=== PATIENT | female | born 1965 ===

== ENCOUNTER 2021-03-30 13:52 | Emergency (ER) | payer OTHER, MEDICAID, SELFPAY ==
[2021-03-30 14:29] VITALS: BP 186/109; PULSE 102; RESP 18; TEMP 36.8; O2SAT 98; BMI 27.3
--- NOTE | 2021-03-30 16:19 | CM.SWNOTE ---
FITNESS TRAINER Note: Received verbal referral from ED staff to see patient for community resources. FITNESS TRAINER met briefly with patient explained role. Patient is a 55yr old female that recently was at [facility] and now states that she would like second opinion. Patient has prescription for Bactrim which she did not fill. During interview patient randomly talking about her son, daughter, boyfriend, and cat? Patient denies recent drug use but admits to doing small amount of meth? Tox screen ordered and pending. Patient requesting pain medication for her unspecified pain? During short interview it appears that patient may still be high or manic? Patient continues to request to see the provider for second opinion. Patient also requesting that her daughter be called to pick her up? Initially, patient reported that she had no place to go? Patient offered community resources and declined. P: Do not anticipate admit unless work up needed. Spoke briefly with RN and explained the above. At this time no additional FITNESS TRAINER services needed. Patient has Medicaid and they cover prescriptions and possibly transport. [place]
--- NOTE | 2021-03-30 17:00 | PC.NURSE ---
Pt informed of urine order, pt states she already provided urine to [facility] and declines providing sample here.
--- NOTE | 2021-03-30 17:21 | DI.RAD.S_ITS ---
PROCEDURE: XR CHEST 1V INDICATIONS: fatigue TECHNIQUE: One view of the chest was acquired. COMPARISON: None. FINDINGS: Surgical changes and devices: None. Lungs and pleura: Scattered subsegmental scarring and/or atelectasis. No acute consolidation. No pleural effusions or pneumothorax. Mediastinum: Mediastinal contours appear normal. Heart size is normal. Bones and chest wall: No suspicious bony lesions. Overlying soft tissues appear unremarkable. IMPRESSION: No acute disease. Dictated by: Reagan Pickett M.D. on 03/30/2021 at 18:02 Approved by: Reagan Pickett M.D. on 03/30/2021 at 18:03
--- NOTE | 2021-03-30 17:24 | ED.PSYCH ---
HPI - Psych <Ino Mejía, DO - Last Filed: 04/06/21 07:34> General Chief Complaint: Psychiatric Symptoms Stated Complaint: mental health Time Seen by Provider: 03/30/21 17:21 Source: patient Mode of arrival: Ambulatory History of Present Illness HPI Narrative: 55F with history of hypertension and multiple chronic pain diagnoses including migraines presents by EMS for evaluation of which she refers to as a 2nd opinion. Patient is a terrible historian and demonstrates flight of ideas. She denies any established mental health diagnosis or use of street drugs but yet frequently repeats she has been labeled a drug user. She is very nondescript in terms of when she is hoping to get out of this visit but states she wants a 2nd opinion. She states she has been having bilateral knee pain for many years and wants to be sure there is nothing wrong with her knees. Additionally, she has been having back pain for many years. She denies any fever or chills. She has had no chest pain or trouble breathing. Related Data Home Medications Medication Instructions Recorded Confirmed Acetaminophen/Aspirin/Caffei 2 tab PO Q 4H #0 12/30/10 (#EXCEDRIN 250 MG-250 MG-65 MG) TRAMADOL HCL (RYZOLT) 100 mg PO Q6H #0 12/30/10 [SPIRIVA] IH Q DAY #0 12/30/10 amlodipine 10 mg tablet (Norvasc) 10 mg NG Q DAY #0 12/30/10 lisinopril 40 mg tablet 40 mg PO Q DAY #0 12/30/10 metoprolol tartrate 50 mg tablet 25 mg PO BID #0 01/24/11 (Lopressor) tizanidine 4 mg capsule (Zanaflex) 6 mg PO Q6H #0 01/24/11 bupropion HCl 150 mg tablet,12 hr 300 mg PO Q DAY #0 11/28/11 sustained-release (Wellbutrin SR) fluoxetine 20 mg capsule 60 mg PO Q DAY #0 11/28/11 pregabalin 50 mg capsule (Lyrica) 100 mg PO TID #3 11/28/11 Allergies Allergy/AdvReac Type Severity Reaction Status Date / Time From IMITREX NS SPR 20 MG Allergy Intermediate VERY Uncoded 03/30/21 14:25 ANXIOUS CRAZY From INDOCIN PO CAP 25 MG Allergy Intermediate STOMACH Uncoded 03/30/21 14:25 ACHE From TALWIN Allergy Intermediate STOMACH Uncoded 03/30/21 14:25 PAIN Review of Systems <Ino Mejía DO - Last Filed: 04/06/21 07:34> Review of Systems Narrative: GENERAL: Denies chills, fatigue, malaise, fever, sweats. HEENT: Denies sinus pain, ear pain, sore throat, difficulty swallowing, dizziness. RESPIRATORY: Denies dyspnea, cough, wheezing, hemoptysis, sputum. CARDIOVASCULAR: Denies chest pain, palpitations, orthopnea, edema, GASTROINTESTINAL: Denies nausea, vomiting, abdominal pain, diarrhea, constipation, melena. : Denies dysuria, frequency, incontinence, hematuria, urinary retention. MUSCULOSKELETAL: See HPI SKIN: Denies rash, skin lesions, or other NEUROLOGIC: See HPI PSYCHIATRIC: No concerning psychosocial issues. 12 point review of systems is negative except for those stated above Patient History <Ino Mejía DO - Last Filed: 04/06/21 07:34> Social History Smoking Status: Current every day smoker Smoking Status: Current every day smoker alcohol intake frequency: other Exam <Ino Mejía DO - Last Filed: 04/06/21 07:34> Narrative Exam Narrative: GENERAL: [55 year old patient appears older than stated age. Well-developed patient, in mild distress. Anxious. Pressured speech, perseverating, and paranoid HEAD: Atraumatic. Normocephalic. EYES: Pupils equal round and reactive. Extraocular motions intact. No scleral icterus. No injection or drainage. ENT: Nose without bleeding, purulent drainage. Throat without erythema, tonsillar hypertrophy or exudate. Airway patent. NECK: Trachea midline. Non tender CARDIOVASCULAR: Regular rate and rhythm without murmurs, gallops, or rubs. RESPIRATORY: Clear to auscultation. Breath sounds equal bilaterally. No wheezes, rales, or rhonchi. GASTROINTESTINAL: Abdomen soft, non-tender, nondistended. EXTREMITIES: No edema or joint tenderness. BACK: Nontender without deformity or crepitance. No flank tenderness. NEURO: Cranial nerves 2-12 grossly intact SKIN: No rash or erythema of visible areas Initial Vital Signs Initial Vital Signs: Vital Signs Temperature 98.2 F 03/30/21 14:29 Pulse Rate 102 H 03/30/21 14:29 Respiratory Rate 18 03/30/21 14:29 Blood Pressure 186/109 H 03/30/21 14:29 Pulse Oximetry 98 03/30/21 14:29 <Jerry Andrews DO - Last Filed: 03/31/21 00:38> Initial Vital Signs Initial Vital Signs: Vital Signs Temperature 98.2 F 03/30/21 14:29 Pulse Rate 102 H 03/30/21 14:29 Respiratory Rate 18 03/30/21 14:29 Blood Pressure 186/109 H 03/30/21 14:29 Pulse Oximetry 98 03/30/21 14:29 Course <Ino Mejía DO - Last Filed: 04/06/21 07:34> Course Course Narrative: patient has thusfar been resistant to any evaluation, but has finally agreed. Her behavior is suggestive of either drugs such as methamphetamines or mental health crisis Patient signed out to Dr. Andrews for final disposition Orders Ordered: ED Orders 03/30/21 17:21 XR chest 1V Stat 03/30/21 19:00 Complete Blood Count AUTO DIFF Stat Comprehensive Metabolic Panel Stat Ethanol (ETOH) Stat Vital Signs Vital signs: Vital Signs - 8 hr 03/30/21 18:05 Pulse Rate 101 H Blood Pressure 157/89 H Pulse Oximetry 94 <Jerry Andrews DO - Last Filed: 03/31/21 00:38> Orders Ordered: ED Orders 03/30/21 17:21 XR chest 1V Stat 03/30/21 19:00 Complete Blood Count AUTO DIFF Stat Comprehensive Metabolic Panel Stat Ethanol (ETOH) Stat Vital Signs Vital signs: Vital Signs - 8 hr 03/30/21 18:05 Pulse Rate 101 H Blood Pressure 157/89 H Pulse Oximetry 94 MDM - Psych <Ino Mejía DO - Last Filed: 04/06/21 07:34> Lab Data Result diagrams: 03/30/21 19:00 03/30/21 19:00 Labs: Lab Results 03/30/21 03/30/21 Range/Units 19:00 19:00 WBC 9.0 (4.5-11.0) X10^3/uL RBC 5.65 H (4.0-5.2) X10^6/uL Hgb 16.3 H (12.0-16.0) g/dL Hct 47.9 H (36-46) % MCV 84.7 (80-100) fL MCH 28.8 (26-34) PG MCHC 34.0 (30-36) % RDW 13.5 (11.6-14.8) % Plt Count 252 (150-400) X10^3/uL Neut % (Auto) 73.2 (50-75) % Lymph % (Auto) 19.1 L (25-40) % [place] % (Auto) 6.0 (3-14) % Eos % (Auto) 1.3 L (2-4) % Baso % (Auto) 0.4 (0-2) % Neut # (Auto) 6600 (0454-1703) /uL Lymph # (Auto) 1700 (0629-1009) /uL [place] # (Auto) 500 (0-900) /uL Eos # (Auto) 100 (0-450) /uL Baso # (Auto) 0 (0-100) /uL Sodium 137 (137-145) mmol/L Potassium 4.3 (3.4-5.1) mmol/L Chloride 105 (98-107) mmol/L Carbon Dioxide 22 (22-32) mmol/L BUN 19 H (7-17) mg/dL Creatinine 0.78 (0.52-1.04) mg/dL Estimated GFR > 60.0 (>60) mL/min BUN/Creatinine Ratio 24.4 H (6-22) Glucose 99 (70-100) mg/dL Calcium 9.4 (8.4-10.2) mg/dL Total Bilirubin 0.8 (0.2-1.3) mg/dL AST 25 (14-36) IU/L ALT 16 (<35) IU/L Alkaline Phosphatase 81 (38-126) U/L Total Protein 7.5 (6.3-8.2) g/dL Albumin 4.2 (3.5-5.0) g/dL Globulin 3.3 (1.7-4.1) g/dL Albumin/Globulin Ratio 1.3 (1.0-2.8) Ethyl Alcohol < 10 ( - 10) mg/dL <Jerry Andrews DO - Last Filed: 03/31/21 00:38> Lab Data Labs: Lab Results 03/30/21 03/30/21 Range/Units 19:00 19:00 WBC 9.0 (4.5-11.0) X10^3/uL RBC 5.65 H (4.0-5.2) X10^6/uL Hgb 16.3 H (12.0-16.0) g/dL Hct 47.9 H (36-46) % MCV 84.7 (80-100) fL MCH 28.8 (26-34) PG MCHC 34.0 (30-36) % RDW 13.5 (11.6-14.8) % Plt Count 252 (150-400) X10^3/uL Neut % (Auto) 73.2 (50-75) % Lymph % (Auto) 19.1 L (25-40) % [place] % (Auto) 6.0 (3-14) % Eos % (Auto) 1.3 L (2-4) % Baso % (Auto) 0.4 (0-2) % Neut # (Auto) 6600 (3981-5599) /uL Lymph # (Auto) 1700 (8485-5507) /uL [place] # (Auto) 500 (0-900) /uL Eos # (Auto) 100 (0-450) /uL Baso # (Auto) 0 (0-100) /uL Sodium 137 (137-145) mmol/L Potassium 4.3 (3.4-5.1) mmol/L Chloride 105 (98-107) mmol/L Carbon Dioxide 22 (22-32) mmol/L BUN 19 H (7-17) mg/dL Creatinine 0.78 (0.52-1.04) mg/dL Estimated GFR > 60.0 (>60) mL/min BUN/Creatinine Ratio 24.4 H (6-22) Glucose 99 (70-100) mg/dL Calcium 9.4 (8.4-10.2) mg/dL Total Bilirubin 0.8 (0.2-1.3) mg/dL AST 25 (14-36) IU/L ALT 16 (<35) IU/L Alkaline Phosphatase 81 (38-126) U/L Total Protein 7.5 (6.3-8.2) g/dL Albumin 4.2 (3.5-5.0) g/dL Globulin 3.3 (1.7-4.1) g/dL Albumin/Globulin Ratio 1.3 (1.0-2.8) Ethyl Alcohol < 10 ( - 10) mg/dL MDM Narrative Medical decision making narrative: Dr andrews: Received turned over from Dr. Mejía. The patient's history and physical. Did receive note from her recent visit at [facility]. At that visit she was seen for symptoms that seem very similar to today. Note stated that it was difficult to obtain an exact history from her. She did have a urinalysis performed that did show and phentermine/methamphetamine. There also was mention about her chronic methamphetamine abuse. She was seen by social work. Was also seen by DCR at that visit it was felt that most likely her presenting symptoms were related to her meth use. Was also very difficult to get an exact history of why she was here in the emergency department today other than she wanted a ?2nd opinion. Unsure as to what she wanted a 2nd opinion for. She was diagnosed with a urinary tract infection but has not picked up her antibiotics. Patient was also seen by social work today. Patient stated that she would like to be discharged from the hospital. I do not feel that the patient meets criteria for an involuntary admission. Patient adamantly denies drug abuse however given the reported history of her recent ED visit if she is not currently high on meth than her previous use of methamphetamine is most likely adding to her presentation today. Patient was given return precautions. Discharge Plan Departure Patient Disposition: Home Clinical Impression: Drug-induced psychotic disorder Activity Restrictions/Additional Instructions: I recommend that you take the antibiotics that were prescribed you at the other facility. I also recommend that you consider stop using methamphetamine as I feel that this is causing much of your issues that you present with today. Contact your primary doctor for a follow-up. If you do not have a primary doctor you can contact [phone]. This is the number for the health vp human resources here at the hospital. You can return to the emergency department for any new or worsening symptoms Prescriptions: No Action lisinopril 40 MG tablet 40 mg PO Q DAY Qty: 0 RF: 0 Acetaminophen/Aspirin/Caffei (#EXCEDRIN 250 MG-250 MG-65 MG) 2 tab PO Q 4H Qty: 0 RF: 0 amlodipine [Norvasc] 10 MG tablet 10 mg NG Q DAY Qty: 0 RF: 0 TRAMADOL HCL (RYZOLT) 100 mg PO Q6H Qty: 0 RF: 0 [SPIRIVA] IH Q DAY Qty: 0 RF: 0 metoprolol tartrate [Lopressor] 50 MG tablet 25 mg PO BID Qty: 0 RF: 0 tizanidine [Zanaflex] 4 MG capsule 6 mg PO Q6H Qty: 0 RF: 0 bupropion HCl [Wellbutrin SR] 150 MG tablet extended release 12 hr 300 mg PO Q DAY Qty: 0 RF: 0 fluoxetine 20 MG capsule 60 mg PO Q DAY Qty: 0 RF: 0 pregabalin [Lyrica] 50 MG capsule 100 mg PO TID Qty: 3 RF: 0
[2021-03-30 18:05] VITALS: BP 157/89; PULSE 101; O2SAT 94
[2021-03-30 19:03] LABS: Add Manual Diff / Slide Review NO; Basophils Absolute Auto 0 /uL (0-100); Basophils Percent Auto 0.4 % (0-2); Eosinophils Absolute Auto 100 /uL (0-450); Eosinophils Percent Auto 1.3 % (2-4); Hematocrit 47.9 % (36-46); Hemoglobin 16.3 g/dL (12.0-16.0); Lymphocytes Absolute Auto 1700 /uL (1100-4500); Lymphocytes Percent Auto 19.1 % (25-40); Mean Corpuscular Hemoglobin 28.8 PG (26-34); Mean Corpuscular Volume 84.7 fL (80-100); Monocytes Absolute Auto 500 /uL (0-900); Neutrophils Absolute Auto 6600 /uL (1500-7000); Neutrophils Percent Auto 73.2 % (50-75); Platelet Count 252 X10^3/uL (150-400); Red Blood Cell Count 5.65 X10^6/uL (4.0-5.2); Red Cell Distribution Width 13.5 % (11.6-14.8)
[2021-03-30 19:18] LABS: Alanine Aminotransferase 16 IU/L (<35); Albumin 4.2 g/dL (3.5-5.0); Albumin Globulin Ratio 1.3 (1.0-2.8); Alkaline Phosphatase 81 U/L (38-126); Aspartate Aminotransferase 25 IU/L (14-36); BUN Creatinine Ratio 24.4 (6-22); Bilirubin Total 0.8 mg/dL (0.2-1.3); Blood Urea Nitrogen 19 mg/dL (7-17); Calcium 9.4 mg/dL (8.4-10.2); Carbon Dioxide 22 mmol/L (22-32); Chloride 105 mmol/L (98-107); Estimated Glomerular Filt Rate > 60.0 mL/min (>60); Ethanol (ETOH) < 10 mg/dL; Globulin 3.3 g/dL (1.7-4.1); Glucose 99 mg/dL (70-100); HEMOLYSIS < 15 (0-50); Potassium 4.3 mmol/L (3.4-5.1); Sodium 137 mmol/L (137-145); Total Protein 7.5 g/dL (6.3-8.2)
== END 2021-03-30 22:00 | disposition home or self-care (01) ==
PROVIDERS: Emergency Medicine; Emergency Provider Emergency Medicine
DX: F19.959 Other psychoactive substance use, unspecified with psychoactive substance-induced psychotic disorder, unspecified (principal)
CPT/HCPCS: 36415; 71045; 80053; 80320; 85025; 99283

== ENCOUNTER 2021-05-04 23:39 | Emergency (ER) | payer OTHER, MEDICAID, SELFPAY ==
[2021-05-04 23:38] VITALS: BP 153/83; PULSE 105; RESP 20; TEMP 37.2; O2SAT 97
--- NOTE | 2021-05-04 23:47 | DI.RAD.S_ITS ---
PROCEDURE: XR KNEE LT 3V INDICATIONS: knee pain TECHNIQUE: 3 views of the knee were acquired. COMPARISON: None. FINDINGS: Bones: No fractures or dislocations. Moderate to severe tricompartmental osteoarthritis is seen most prominent in medial femoral tibial compartment. No patellar subluxation. No suspicious bony lesions. Soft tissues: Moderate joint effusion is seen. There is a 2.2 x 1.5 cm calcified structure within suprapatellar joint space and is suggestive of calcified intra-articular loose body. No suspicious soft tissue calcifications. IMPRESSION: Moderate to severe tricompartmental osteoarthritis most prominent in medial femoral tibial compartment. Moderate joint effusion in suggestion of intra-articular loose body as above. No fracture or dislocation. Dictated by: Ascencion Murcia M.D. on 05/05/2021 at 0:15 Approved by: Ascencion Murcia M.D. on 05/05/2021 at 0:18
--- NOTE | 2021-05-04 23:47 | DI.RAD.S_ITS ---
PROCEDURE: XR KNEE RT 3V INDICATIONS: knee pain TECHNIQUE: 3 views of the knee were acquired. COMPARISON: None. FINDINGS: Bones: No fractures or dislocations. Moderate to severe tricompartmental osteoarthritis is seen most prominent in medial femoral tibial compartment. No suspicious bony lesions. Soft tissues: Moderate suprapatellar joint effusion is seen. No suspicious soft tissue calcifications. IMPRESSION: No acute right knee fracture or dislocation. Moderate to severe tricompartmental osteoarthritis most prominent in medial femoral tibial compartment. Moderate suprapatellar joint effusion. Dictated by: Ascencion Murcia M.D. on 05/05/2021 at 0:14 Approved by: Ascencion Murcia M.D. on 05/05/2021 at 0:15
--- NOTE | 2021-05-05 01:53 | PC.NURSE ---
observed pt ambulating to bathroom with assistance of care give or device
--- NOTE | 2021-05-05 05:23 | ED_ITS ---
HPI - Extremity Injury (Lower) <Tigist Eduardo, DO - Last Filed: 05/05/21 17:50> General Chief Complaint: Extremity Injury, Lower Stated Complaint: Chronic knee pain Time Seen by Provider: 05/05/21 00:34 Source: patient Mode of arrival: Ambulatory History of Present Illness HPI Narrative: Patient is a 55 year-old homeless female who presents with bilateral knee pain since 2004. She states that her knees are getting more painful to walk. She actually was brought here by with the medics because she had kicked out of the with the homeless senior care. She said the senior care supply her with ibuprofen. She is offered a ibuprofen or Tylenol for this time she is demanding that we find her another senior care. Related Data Home Medications Medication Instructions Recorded Confirmed Acetaminophen/Aspirin/Caffei 2 tab PO Q 4H #0 12/30/10 (#EXCEDRIN 250 MG-250 MG-65 MG) TRAMADOL HCL (RYZOLT) 100 mg PO Q6H #0 12/30/10 [SPIRIVA] IH Q DAY #0 12/30/10 amlodipine 10 mg tablet (Norvasc) 10 mg NG Q DAY #0 12/30/10 lisinopril 40 mg tablet 40 mg PO Q DAY #0 12/30/10 metoprolol tartrate 50 mg tablet 25 mg PO BID #0 01/24/11 (Lopressor) tizanidine 4 mg capsule (Zanaflex) 6 mg PO Q6H #0 01/24/11 bupropion HCl 150 mg tablet,12 hr 300 mg PO Q DAY #0 11/28/11 sustained-release (Wellbutrin SR) fluoxetine 20 mg capsule 60 mg PO Q DAY #0 11/28/11 pregabalin 50 mg capsule (Lyrica) 100 mg PO TID #3 11/28/11 Previous Rx's Medication Instructions Recorded acetaminophen 500 mg tablet 500 mg PO Q6H PRN #20 tab 05/05/21 methocarbamol 500 mg tablet 500 mg PO TID #15 tab 05/05/21 Allergies Allergy/AdvReac Type Severity Reaction Status Date / Time indomethacin AdvReac Intermediate Gastrointestinal Verified 05/05/21 08:39 Upset pentazocine [From Panchito] AdvReac Intermediate Gastrointestinal Verified 05/05/21 08:39 Upset sumatriptan AdvReac Intermediate Anxiety Verified 05/05/21 08:39 Review of Systems <Tigist Clark DO - Last Filed: 05/05/21 17:50> Review of Systems Narrative: GENERAL: Denies chills,fever HEENT: Denies throat pain RESPIRATORY: Denies dyspnea, cough, wheezing CARDIOVASCULAR: Denies chest pain, palpitations GASTROINTESTINAL: Denies nausea, vomiting MUSCULOSKELETAL: See HPI SKIN: No rash, no laceration, no pruritus NEUROLOGIC: Denies weakness, dizziness, headache, numbness 8 point review of systems is negative except for those stated above and HPI Patient History <Tigist Clark DO - Last Filed: 05/05/21 17:50> Social History Smoking Status: Current every day smoker Smoking Status: Current every day smoker alcohol intake frequency: other Exam <Tigist Clark DO - Last Filed: 05/05/21 17:50> Initial Vital Signs Initial Vital Signs: Vital Signs Temperature 99.0 F 05/04/21 23:38 Pulse Rate 105 H 05/04/21 23:38 Respiratory Rate 20 05/04/21 23:38 Blood Pressure 153/83 H 05/04/21 23:38 Pulse Oximetry 97 05/04/21 23:38 GENERAL: Dishevelled awake alert 55-year-old female CARDIOVASCULAR: peripheral pulses in tact, cap refill <2 sec RESPIRATORY: No respiratory distress, speaks in full sentences without difficulty EXTREMITIES: Normal range of motion, no clubbing or edema. Neurovascularly intact Mild swelling of both knees able to extend knees without difficulty. Distal pedal pulses are present bilaterally. NEUROLOGICAL: Cranial nerves II through XII grossly intact. Normal gait and speech. SKIN: Warm, dry, no petechiae, no rashes or lesions. <Henry Schmitt MD - Last Filed: 05/05/21 12:50> Initial Vital Signs Initial Vital Signs: Vital Signs Temperature 99.0 F 05/04/21 23:38 Pulse Rate 105 H 05/04/21 23:38 Respiratory Rate 20 05/04/21 23:38 Blood Pressure 153/83 H 05/04/21 23:38 Pulse Oximetry 97 05/04/21 23:38 Course <Tigist Clark DO - Last Filed: 05/05/21 17:50> Orders Ordered: Discontinued Medications Ibuprofen (Ibuprofen 400 Mg Tablet) 400 mg PO NOW ONE Stop: 05/05/21 08:28 Last Admin: 05/05/21 08:35 Dose: 400 mg Documented by: BTONER Vital Signs Vital signs: Vital Signs - 8 hr 05/05/21 08:30 Pulse Rate 88 Respiratory Rate 19 Blood Pressure 131/78 Pulse Oximetry 94 <Henry Schmitt MD - Last Filed: 05/05/21 12:50> Course Course Narrative: 7:00 a.m.. Sign out from Dr. Clark, patient has been here 7 hours for resting. She is homeless. No new issues during course of stay. Will need referral for Orthopedics. Orders Ordered: Discontinued Medications Ibuprofen (Ibuprofen 400 Mg Tablet) 400 mg PO NOW ONE Stop: 05/05/21 08:28 Last Admin: 05/05/21 08:35 Dose: 400 mg Documented by: BTONER Reevaluation(s) Reevaluation #1: Patient resting comfortably. Reviewed x-rays with her. She does request narcotic medication to help for her chronic knee pain. She has had Robaxin in the past. Also has had anti-inflammatories. Time: 07:40 Vital Signs Vital signs: Vital Signs - 8 hr 05/05/21 08:30 Pulse Rate 88 Respiratory Rate 19 Blood Pressure 131/78 Pulse Oximetry 94 MDM - Extremity Injury (Lower) <Tigist Clark DO - Last Filed: 05/05/21 17:50> Imaging Data Extremity x-ray #1: Radiologist's Impression: PROCEDURE:? XR KNEE LT 3V ? INDICATIONS:? knee pain ? TECHNIQUE:? 3 views of the knee were acquired.? ? COMPARISON:? None. ? FINDINGS:? ? Bones:? No fractures or dislocations.? Moderate to severe tricompartmental osteoarthritis is seen most prominent in medial femoral tibial compartment.? No patellar subluxation.? No suspicious bony lesions.? ? Soft tissues:? Moderate joint effusion is seen.? There is a 2.2 x 1.5 cm calcified structure within suprapatellar joint space and is suggestive of calcified intra- articular loose body.? No suspicious soft tissue calcifications.? ? ? IMPRESSION:? Moderate to severe tricompartmental osteoarthritis most prominent in medial femoral tibial compartment.? Moderate joint effusion in suggestion of intra- articular loose body as above.? No fracture or dislocation. ? ? Dictated by: Ascenicon Murcia M.D. on 05/05/2021 at 0:15 ? ? Extremity x-ray #2: Radiologist's Impression: PROCEDURE:? XR KNEE RT 3V ? INDICATIONS:? knee pain ? TECHNIQUE:? 3 views of the knee were acquired.? ? COMPARISON:? None. ? FINDINGS:? ? Bones:? No fractures or dislocations.? Moderate to severe tricompartmental osteoarthritis is seen most prominent in medial femoral tibial compartment.? No suspicious bony lesions. ? ? Soft tissues:? Moderate suprapatellar joint effusion is seen.? No suspicious so ft tissue calcifications.? ? ? IMPRESSION:? No acute right knee fracture or dislocation.? Moderate to severe tricompartmental osteoarthritis most prominent in medial femoral tibial compartment.? Moderate suprapatellar joint effusion. ? ? Dictated by: Ascencion Murcia M.D. on 05/05/2021 at 0:14 ? ? [facility] Narrative Medical decision making narrative: signed out to Dr. Schmitt. Upper for discharge home. Patient in no distress. No laboratory studies indicated this time. No fever. Referral for Orthopedics given to patient. Return precautions reviewed as well. Vital signs improved at time of discharge <Henry Schmitt MD - Last Filed: 05/05/21 12:50> Differential Diagnosis Differential diagnosis: Likely other (Chronic knee pain/arthritis) [facility] Narrative Medical decision making narrative: Upper for discharge home. Patient in no distress. No laboratory studies indicated this time. No fever. Referral for Orthopedics given to patient. Return precautions reviewed as well. Vital signs improved at time of discharge Discharge Plan Departure Patient Disposition: Home Clinical Impression: Osteoarthritis Instructions: DI for Osteoarthritis Activity Restrictions/Additional Instructions: *You have been diagnosed with osteoarthritis *What to do: *Continue to take medications as directed Ibuprofen 800 mg every 8 hours as needed for pain Tylenol 1000 mg every 6 hours if needed for pain *Follow up with your primary care provider in 2-3 days *Return to ER if you should have any new, worsening or concerning symptoms Call provided orthopedic office to make appointment for your knee pain. Also you may call primary care referral line for routine family doctor phone #[phone] Prescriptions: New methocarbamol 500 mg tablet 500 mg PO TID Qty: 15 0RF acetaminophen 500 mg tablet 500 mg PO Q6H PRN (Reason: pain) Qty: 20 0RF No Action lisinopril 40 MG tablet 40 mg PO Q DAY Qty: 0 0RF Acetaminophen/Aspirin/Caffei (#EXCEDRIN 250 MG-250 MG-65 MG) 2 tab PO Q 4H Qty: 0 0RF amlodipine [Norvasc] 10 MG tablet 10 mg NG Q DAY Qty: 0 0RF TRAMADOL HCL (RYZOLT) 100 mg PO Q6H Qty: 0 0RF [SPIRIVA] IH Q DAY Qty: 0 0RF metoprolol tartrate [Lopressor] 50 MG tablet 25 mg PO BID Qty: 0 0RF tizanidine [Zanaflex] 4 MG capsule 6 mg PO Q6H Qty: 0 0RF bupropion HCl [Wellbutrin SR] 150 MG tablet extended release 12 hr 300 mg PO Q DAY Qty: 0 0RF fluoxetine 20 MG capsule 60 mg PO Q DAY Qty: 0 0RF pregabalin [Lyrica] 50 MG capsule 100 mg PO TID Qty: 3 0RF Referrals: Yesi Britt MD [Physician] -
[2021-05-05 08:30] VITALS: BP 131/78; PULSE 88; RESP 19; O2SAT 94
[2021-05-05] MEDS: IBUPROFEN 400 MG TABLET PO (08:35)
== END 2021-05-05 09:29 | disposition home or self-care (01) ==
PROVIDERS: Emergency Provider Emergency Medicine
DX: M17.0 Bilateral primary osteoarthritis of knee (principal)
CPT/HCPCS: 73562; 99283